=== PATIENT | female | born 1985 | race Caucasian/White ===

== ENCOUNTER 2022-05-17 17:45 | Emergency (ER) | payer MEDICAID ==
[~2022-05-17] VITALS: Ht 154.9 cm; Wt 82.0 kg
[2022-05-17 20:03] LABS: CLARITY URINE CLOUDY (CLEAR); COLOR URINE YELLOW (YELLOW); KETONES URINE NEGATIVE (NEGATIVE); LEUKOCYTE ESTERASE URINE 3+ (NEGATIVE); NITRITE URINE NEGATIVE (NEGATIVE); OCCULT BLOOD URINE 2+ (NEGATIVE); PH URINE 7.5 (4.5-8.0); PROTEIN URINE NEGATIVE (NEGATIVE); SPECIFIC GRAVITY URINE 1.016 (1.005-1.030); UROBILINOGEN URINE 0.2 E.U./dL (0.2-1.0)
[2022-05-17 20:06] LABS: BASOPHILS % 0.4 % (0.0-2.0); EOSINOPHILS % 4.4 % (0.0-5.0); HEMATOCRIT. 39.8 % (36.0-48.0); HEMOGLOBIN. 13.7 g/dL (12.0-16.0); MEAN CORPUSCULAR HEMOGLOBIN 31.8 pg (28.0-32.0); MEAN CORPUSCULAR VOLUME 92.3 fL (81.0-99.0); MEAN PLATELET VOLUME 9.2 fl (7.4-10.4); MONOCYTES % 8.7 % (2.0-8.0); NEUTROPHILS % 46.5 % (40.0-76.0); PLATELET 258 x1000/uL (130-400); RED BLOOD CELL COUNT 4.32 mill/uL (4.2-5.4); RED CELL DISTRIBUTION WIDTH 12.9 % (11.6-14.6)
[2022-05-17 20:10] LABS: CHLORIDE 104 mEq/L (98-107)
[2022-05-17 20:21] LABS: *AMPHETAMINES SCREEN URINE NEGATIVE (NEGATIVE); *BARBITURATES SCREEN URINE NEGATIVE (NEGATIVE); *BENZODIAZEPINES SCREEN URINE NEGATIVE (NEGATIVE); *COCAINE SCREEN URINE NEGATIVE (NEGATIVE); CANNABINOID URINE SCREEN NEGATIVE (NEGATIVE); METHADONE URINE SCREEN NEGATIVE (NEGATIVE); OPIATES URINE SCREEN NEGATIVE (NEGATIVE); PHENCYCLIDINE URINE SCREEN NEGATIVE (NEGATIVE)
[2022-05-17 20:22] LABS: HCG SCREEN NEGATIVE
[2022-05-17] MEDS ORDERED: IBUP-2029 MT (21:43)
[2022-05-17 22:26] VITALS: BP 136/87
== END 2022-05-17 22:28 | disposition home or self-care (01) ==
LOC: ER 17:52
DX: K80.20 Calculus of gallbladder without cholecystitis without obstruction (principal); E78.00 Pure hypercholesterolemia, unspecified; Z98.51 Tubal ligation status
CPT/HCPCS: 36415; 76705; 80053; 80305; 81003; 81025; 84703; 85025; 99284

== ENCOUNTER 2024-04-20 14:35 | Emergency (ER) | payer SELFPAY ==
[~2024-04-20] VITALS: Ht 152.4 cm; Wt 73.0 kg
[~2024-04-20 14:35] MED LIST: IBUP-2029 MT
[2024-04-20 14:53] VITALS: O2SAT 99
[2024-04-20] MEDS: KETOROLAC 15MG/ML VIAL IM ONE (15:26)
[2024-04-20] MEDS ORDERED: NAPR-1176 MT (15:32)
[2024-04-20] MEDS ORDERED: LIDO700A15 TP (15:32)
[2024-04-20 15:59] VITALS: BP 124/78; PULSE 82; RESP 16; TEMP 98
== END 2024-04-20 15:59 | disposition home or self-care (01) ==
LOC: ER 14:35
DX: M79.604 Pain in right leg (principal); M79.605 Pain in left leg; E78.00 Pure hypercholesterolemia, unspecified; I10 Essential (primary) hypertension; Z98.51 Tubal ligation status
CPT/HCPCS: 81025; 99283

== ENCOUNTER 2024-10-13 11:55 | Emergency (ER) | payer MEDICAID ==
[~2024-10-13] VITALS: Ht 160 cm; Wt 72.2 kg
[~2024-10-13 11:55] MED LIST changes: +LIDO700A15 TP; +NAPR-1176 MT
[2024-10-13 12:26] VITALS: BP 131/88; PULSE 72; RESP 16; TEMP 98.3; O2SAT 99
[2024-10-13] MEDS ORDERED: HYDR453.3 TP (14:50)
[2024-10-13] MEDS ORDERED: HYDROCORTISONE 1% CREAM 30GM TOP NR (15:00)
== END 2024-10-13 15:14 | disposition home or self-care (01) ==
LOC: ER 11:55
DX: L40.9 Psoriasis, unspecified (principal); E78.00 Pure hypercholesterolemia, unspecified; I10 Essential (primary) hypertension; Z79.899 Other long term (current) drug therapy; Z98.51 Tubal ligation status; Z98.890 Other specified postprocedural states
CPT/HCPCS: 99282